=== PATIENT | male | born 1950 | race Caucasian/White ===

== ENCOUNTER 2020-03-09 08:32 | Outpatient (CLI) | payer MEDICARE ==
--- NOTE | 2020-03-09 09:12 | ULT ---
Exam: Abdominal aortic ultrasound HISTORY: Evaluate for aneurysm. Screening study TECHNIQUE: Grayscale, color flow, Doppler imaging and spectral waveform analysis of the aorta FINDINGS: Proximal aorta is obscured by bowel gas Mid aorta measures 1.7 cm in the sagittal plane, this aorta measures 1.6 cm in sagittal plane. Aortic bifurcation and iliac arteries do not appear to be enlarged. Visualized aorta is patent with triphasic flow IMPRESSION: No evidence of aneurysm the visualized abdominal aorta.
== END 2020-03-09 08:33 | disposition home or self-care (01) ==
LOC: BICULT 08:32
PROVIDERS: ATTEND Family Medicine
DX: Z13.6 Encounter for screening for cardiovascular disorders (principal)
CPT/HCPCS: 76775

== ENCOUNTER 2022-04-27 09:02 | Outpatient (CLI) | payer MEDICARE | END 2022-04-27 09:03 | disposition home or self-care (01) | LOC: SCSMRI 09:02 | PROVIDERS: ATTEND Family Medicine | DX: M47.26 Other spondylosis with radiculopathy, lumbar region (principal); N28.1 Cyst of kidney, acquired; M47.815 Spondylosis without myelopathy or radiculopathy, thoracolumbar region; M47.817 Spondylosis without myelopathy or radiculopathy, lumbosacral region | CPT/HCPCS: 72148 ==

== ENCOUNTER 2022-05-05 10:42 | Outpatient (CLI) | payer MEDICARE ==
[2022-05-05] MEDS ORDERED: Iopamidol-370 76% 500 ML 1 ML ONE (11:31)
== END 2022-05-05 10:43 | disposition home or self-care (01) ==
LOC: BICCT 10:42
PROVIDERS: ATTEND Family Medicine
DX: N28.89 Other specified disorders of kidney and ureter (principal); N28.1 Cyst of kidney, acquired
CPT/HCPCS: 74170; 82565

== ENCOUNTER 2022-05-20 15:23 | Emergency (ER) | payer MEDICARE ==
[2022-05-20 16:54] LABS: #Lymphocytes 1.3 thou/uL (1.20-3.40); #Monocytes 0.5 thou/uL (0.11-0.59); #Neutrophils 8.9 thou/uL (1.40-6.50); %Basophils 0.2 % (0.0-1.0); %Eosinophils 0.2 % (0.0-10.0); %Lymphocytes 11.7 % (21.0-51.0); %Monocytes 4.8 % (0.0-10.0); %Neutrophils 83.2 % (42.0-75.0); Hemoglobin 14.4 g/dL (14.0-18.0); Mean Corpuscular HGB CONC 33.9 g/dL (32.0-36.0); Mean Corpuscular Hemoglobin 29.4 pg (27.0-31.0); Mean Corpuscular Volume 86.8 fl (78.0-98.0); Mean Platelet Volume 6.6 fL (7.4-10.4); Platelet Count 255 10x3/uL (130-400); RBC Distribution Width 12.8 % (11.5-14.5); Red Blood Cell (RBC) Count 4.89 mill/uL (4.70-6.10); White Blood Cell (WBC) Count 10.7 10x3/uL (4.8-10.8)
[2022-05-20 17:16] LABS: ALT (SGPT) 18 U/L (8-55); AST (SGOT) 17 U/L (5-34); Albumin 4.5 g/dL (3.4-4.8); Alkaline Phosphatase 76 U/L (40-110); Anion Gap 14 mmol/L (10-20); BUN (Urea Nitrogen) 22 mg/dL (8.4-25.7); Bilirubin, Total 0.6 mg/dL (0.2-1.2); Calc. Creatinine Clearance 0 mL/min (70-130); Calcium 9.5 mg/dL (7.8-10.44); Carbon Dioxide 23 mmol/L (23-31); Chloride 102 mmol/L (98-107); Estimated GFR 87; Globulin 2.5 g/dL (2.4-3.5); Glucose 141 mg/dL (80-115); Sodium 135 mmol/L (136-145)
[2022-05-20 17:41] LABS: Bacteria/HPF None Seen HPF (None Seen); Bilirubin Negative (Negative); Blood, Urine 1+ (Negative); Clarity Clear (Clear); Glucose, Urine (Dipstick) Normal (Negative); Ketone, Urine 10 mg/dL (Negative); Leukocyte Negative Leu/uL (Negative); Nitrite Negative (Negative); Protein, Urine (Dipstick) Negative (Neg-Trace); Specific Gravity, Urine 1.021 (1.002-1.036); Squamous Epithelial None Seen HPF (0-3); Urobilinogen Normal mg/dL (Less than 2); WBC/HPF 0-3 HPF (0-3); pH, Urine 5.5 (5.0-9.0)
== END 2022-05-20 18:39 | disposition home or self-care (01) ==
LOC: ERS 15:23
DX: R20.2 Paresthesia of skin (principal); M54.9 Dorsalgia, unspecified; N28.89 Other specified disorders of kidney and ureter; E78.00 Pure hypercholesterolemia, unspecified
CPT/HCPCS: 36415; 80053; 81003; 81015; 85025; 99284

== ENCOUNTER 2022-12-25 12:50 | Outpatient (CLI) | payer MEDICARE | END 2022-12-25 12:51 | disposition home or self-care (01) | LOC: BICULT 12:50 | PROVIDERS: ATTEND Internal Medicine Nephrology | DX: N18.30 Chronic kidney disease, stage 3 unspecified (principal); N28.1 Cyst of kidney, acquired | CPT/HCPCS: 76770 ==

== ENCOUNTER 2024-04-24 11:12 | Outpatient (CLI) | payer MEDICARE | END 2024-04-24 11:13 | disposition home or self-care (01) | LOC: BICRAD 11:12 | DX: M54.50 Low back pain, unspecified (principal); M25.551 Pain in right hip; M16.11 Unilateral primary osteoarthritis, right hip; M47.816 Spondylosis without myelopathy or radiculopathy, lumbar region; E78.5 Hyperlipidemia, unspecified; E78.00 Pure hypercholesterolemia, unspecified | CPT/HCPCS: 36415; 72110; 80053; 80061; 81001; 84443; 85025 ==

== ENCOUNTER 2024-05-05 09:30 | Outpatient (CLI) | payer MEDICARE | END 2024-05-05 09:31 | disposition home or self-care (01) | LOC: SCSMRI 09:30 | PROVIDERS: ATTEND Specialist | DX: M48.062 Spinal stenosis, lumbar region with neurogenic claudication (principal); M47.816 Spondylosis without myelopathy or radiculopathy, lumbar region; M25.78 Osteophyte, vertebrae; M48.07 Spinal stenosis, lumbosacral region | CPT/HCPCS: 72148 ==